=== PATIENT | female | born 1955 | race Caucasian/White ===

== ENCOUNTER 2021-12-26 10:26 | Outpatient (CLI) | payer MEDICARE ==
[2021-12-26 11:24] LABS: Hemoglobin 12.9 g/dL (12.0-15.5)
[2021-12-26 11:57] LABS: Anion Gap 14 mmol/L (10-20); BUN (Urea Nitrogen) 20 mg/dL (9.8-20.1); Calc. Creatinine Clearance 0 mL/min (70-130); Calcium 9.5 mg/dL (7.8-10.44); Carbon Dioxide 28 mmol/L (23-31); Chloride 102 mmol/L (98-107); Estimated GFR 75; Glucose 123 mg/dL (80-115); Potassium 4.9 mmol/L (3.5-5.1); Sodium 139 mmol/L (136-145)
== END 2021-12-26 10:27 | disposition home or self-care (01) ==
LOC: CSHLAB 10:26
PROVIDERS: ATTEND Otolaryngology Plastic Surgery within the Head & Neck
DX: Z01.818 Encounter for other preprocedural examination (principal); Z20.822 Contact with and (suspected) exposure to COVID-19; R06.1 Stridor; R49.0 Dysphonia; J01.00 Acute maxillary sinusitis, unspecified
CPT/HCPCS: 80048; 85014; 85018; 87811; 93005; 93010

== ENCOUNTER 2021-12-31 06:46 | Day surgery (SDC) | payer MEDICARE ==
[2021-12-27 16:50] VITALS: BMI 23.3
[~2021-12-31 06:46] MED LIST: Lidocaine 4% Topical Sol 50 ML BOT ONE; Oxymetazoline HCl 0.05% ( 15 ML ) ONE
[2021-12-31] MEDS ORDERED: Midazolam HCl 2 mg/2 ml Vial ONE ×2 (09:11→09:23)
[2021-12-31] MEDS ORDERED: EPINEPHrine 1 MG/ML AMP ONE (09:22)
[2021-12-31] MEDS ORDERED: Triamcinolone 40 MG/ML VIAL ONE (09:22)
[2021-12-31] MEDS ORDERED: Lidocaine 1% PF 5 ML VIAL ONE (09:23)
[2021-12-31] MEDS ORDERED: Fentanyl 100 MCG/2 ML VIAL ONE ×2 (09:23→10:25)
[2021-12-31] MEDS ORDERED: Dexamethasone 20 MG/5 ML VIAL ONE (09:23)
[2021-12-31] MEDS ORDERED: PROPOFOL 60 ML ONE (09:23)
[2021-12-31] MEDS ORDERED: Ondansetron PF 4 MG/2 ML Vial ONE (09:23)
[2021-12-31] MEDS ORDERED: hydrALAZINE 20 MG/ML VIAL ONE (10:51)
== END 2021-12-31 12:15 | disposition home or self-care (01) ==
LOC: CSHSDC 06:46
PROVIDERS: ATTEND Otolaryngology Plastic Surgery within the Head & Neck
PROC: 3E0F83Z Introduction of Anti-inflammatory into Respiratory Tract, Via Natural or Artificial Opening Endoscopic (ICD-10-PCS; principal; 2021-12-31)
PROC: 0C7S8ZZ Dilation of Larynx, Via Natural or Artificial Opening Endoscopic (ICD-10-PCS; 2021-12-31)
DX: J38.6 Stenosis of larynx (principal); J38.3 Other diseases of vocal cords; J01.00 Acute maxillary sinusitis, unspecified; R49.0 Dysphonia; J38.01 Paralysis of vocal cords and larynx, unilateral; J30.9 Allergic rhinitis, unspecified; G47.30 Sleep apnea, unspecified; E03.9 Hypothyroidism, unspecified; H26.9 Unspecified cataract; F32.A Depression, unspecified; F41.9 Anxiety disorder, unspecified; G43.909 Migraine, unspecified, not intractable, without status migrainosus; Z87.891 Personal history of nicotine dependence; Z20.822 Contact with and (suspected) exposure to COVID-19; Z88.8 Allergy status to other drugs, medicaments and biological substances; Z90.49 Acquired absence of other specified parts of digestive tract; Z98.890 Other specified postprocedural states
CPT/HCPCS: 31528; 31571; C1726 ×2; J0171; J0360; J1100; J2250; J2405; J2704; J3010; J3301

== ENCOUNTER 2022-04-30 11:31 | Emergency (ER) | payer MEDICARE ==
[~2022-04-30 11:31] MED LIST changes: +Iopamidol 300 61% 100 ML VIAL FS ONE; -Lidocaine 4% Topical Sol 50 ML BOT ONE; -Oxymetazoline HCl 0.05% ( 15 ML ) ONE
[2022-04-30 12:14] LABS: #Basophils 0.1 10x3/uL (0.0-0.2); #Eosinphils 0.3 10x3/uL (0.0-0.5); #Monocytes 0.8 10x3/uL (0.0-1.1); #Neutrophils 4.1 10x3/uL (1.5-8.4); %Basophils 0.9 % (0.0-2.0); %Eosinophils 3.6 % (0.0-6.0); %Lymphocytes 29.5 % (18.0-47.0); %Monocytes 10.7 % (0.0-10.0); %Neutrophils 54.9 % (40.0-75.0); Hemoglobin 14.2 g/dL (12.0-15.5); Mean Corpuscular HGB CONC 34.3 g/dL (32.0-36.0); Mean Corpuscular Volume 87.3 fl (81.6-98.3); Platelet Count 262 10x3/uL (130-400); RBC Distribution Width 12.6 % (11.5-14.5); Red Blood Cell (RBC) Count 4.74 10x6/uL (3.90-5.03); White Blood Cell (WBC) Count 7.5 10x3/uL (3.5-10.5)
[2022-04-30 12:22] LABS: ALT (SGPT) 19 U/L (8-55); AST (SGOT) 24 U/L (5-34); Albumin 4.4 g/dL (3.4-4.8); Alkaline Phosphatase 48 U/L (40-110); Anion Gap 12 mmol/L (10-20); BUN (Urea Nitrogen) 15 mg/dL (9.8-20.1); Bilirubin, Total 0.4 mg/dL (0.2-1.2); Calc. Creatinine Clearance 0 mL/min (70-130); Carbon Dioxide 28 mmol/L (23-31); Chloride 101 mmol/L (98-107); Estimated GFR 75; Globulin 2.9 g/dL (2.4-3.5); Glucose 93 mg/dL (80-115); Lipase 24 U/L (8-78); Potassium 3.8 mmol/L (3.5-5.1); Protein, Total 7.3 g/dL (5.8-8.1); Sodium 137 mmol/L (136-145)
[2022-04-30 12:26] LABS: Bilirubin Neg (Negative); Blood, Urine Negative (Negative); Clarity Clear (Clear); Glucose, Urine (Dipstick) Normal (Negative); Ketone, Urine Negative (Negative); Leukocyte Negative (Negative); Nitrite Negative (Negative); Protein, Urine (Dipstick) Negative (Neg-Trace); Urobilinogen Normal mg/dL (Less than 2)
[2022-04-30] MEDS ORDERED: Morphine 4 MG/ML VIAL ONE (13:42)
[2022-04-30] MEDS ORDERED: Ondansetron PF 4 MG/2 ML Vial ONE (13:42)
== END 2022-04-30 15:19 | disposition home or self-care (01) ==
LOC: CSHERS 11:31
DX: K52.9 Noninfective gastroenteritis and colitis, unspecified (principal); K62.89 Other specified diseases of anus and rectum; E03.9 Hypothyroidism, unspecified; Z79.899 Other long term (current) drug therapy
CPT/HCPCS: 36415; 74177; 80053; 81003; 83605; 83690; 85025; 96361; 96374; 96375; J2270; J2405; Q9967

== ENCOUNTER 2024-07-17 15:13 | Inpatient (IN) | payer MEDICARE ==
[2024-07-17] MEDS ORDERED: Morphine 4 MG/ML VIAL ONE ×2 (17:13→20:31)
[2024-07-17] MEDS ORDERED: Dexamethasone 10 MG/ML VIAL ONE (17:14)
[2024-07-17] MEDS ORDERED: Ondansetron PF 4 MG/2 ML Vial ONE (17:14)
[2024-07-17 17:22] LABS: #Basophils 0.12 10x3/uL (0.0-0.2); #Eosinophils 0.35 10x3/uL (0.0-0.5); #Neutrophils 5.89 10x3/uL (1.5-8.4); %Basophils 1.3 % (0.0-2.0); %Eosinophils 3.7 % (0.0-6.0); %Lymphocytes 22.8 % (18.0-47.0); %Monocytes 9.5 % (0.0-10.0); %Neutrophils 62.2 % (40.0-75.0); Hematocrit 38.5 % (34.9-44.5); Hemoglobin 12.5 g/dL (12.0-15.5); Mean Corpuscular HGB CONC 32.5 g/dL (32.0-36.0); Mean Corpuscular Hemoglobin 28.3 pg (27.0-33.0); Mean Corpuscular Volume 87.1 fL (81.6-98.3); Mean Platelet Volume 9.5 fL (7.4-10.4); Platelet Count 325 10x3/uL (150-450); RBC Distribution Width 13.4 % (11.5-14.5); Red Blood Cell (RBC) Count 4.42 10x6/uL (3.90-5.03); White Blood Cell (WBC) Count 9.47 10x3/uL (3.5-10.5)
[2024-07-17 17:39] LABS: ALT (SGPT) 13 U/L (Less than 34); AST (SGOT) 30 U/L (11-34); Albumin 4.1 g/dL (3.1-4.5); Alkaline Phosphatase 61 U/L (40-110); Anion Gap 15 mmol/L (10-20); BUN (Urea Nitrogen) 20 mg/dL (9.8-20.1); Bilirubin, Total 0.2 mg/dL (0.3-1.2); Calc. Creatinine Clearance 0 mL/min (70-130); Calcium 9.5 mg/dL (7.8-10.44); Carbon Dioxide 25 mmol/L (23-31); Chloride 105 mmol/L (98-107); Estimated GFR 59; Globulin 3.1 g/dL (2.4-3.5); Glucose 110 mg/dL (80-115); Potassium 3.7 mmol/L (3.5-5.1); Protein, Total 7.2 g/dL (5.8-8.1); Sodium 141 mmol/L (136-145)
[2024-07-17 17:43] LABS: Troponin I Less than 0.010 ng/mL (< 0.028)
[2024-07-17] MEDS ORDERED: Senokot S 8.6-50 MG TAB PO PRN (20:07)
[2024-07-17] MEDS ORDERED: Guaifenesin DM 100-10/5 ML UDCUP PO PRN (20:07)
[2024-07-17] MEDS ORDERED: Zolpidem Tartrate 5 MG TAB PO PRN (20:07)
[2024-07-17] MEDS ORDERED: Calcium Carbonate 500 MG ChewTAB PO PRN (20:07)
[2024-07-17] MEDS ORDERED: Acetaminophen/Codeine 30-300mg Tablet PO PRN (20:07)
[2024-07-17] MEDS ORDERED: Ondansetron PF 4 MG/2 ML Vial IVP PRN (20:07)
[2024-07-17] MEDS ORDERED: tiZANidine HCl 4 MG TAB PO PRN (20:08)
[2024-07-17 21:39] VITALS: BMI 23.2
[2024-07-17] MEDS: Ampicillin/Sulbactam 3 GM in Sodium Chloride 0.9% 100 ML IVPB SCH (22:02)
[2024-07-17] MEDS: Vancomycin HCl 125 MG Capsule PO SCH (22:02)
[2024-07-17] MEDS: Montelukast Sodium 10 mg Tablet PO SCH (22:06)
[2024-07-17] MEDS: Fenofibrate 48 MG TAB PO SCH (22:06)
[2024-07-17] MEDS: Famotidine 20 MG TAB PO SCH (22:06)
[2024-07-17] MEDS: Lactated Ringer's 1,000 ML IV SCH (22:06)
[2024-07-17 23:06] LABS: Influenza A by NAA Not Detected (NotDetected); Influenza B by NAA Not Detected (NotDetected); RSV by NAA Not Detected (NotDetected); SARS-CoV-2 NAA Rapid Test Not Detected (NotDetected)
[2024-07-18] MEDS: Acetaminophen 325 MG TAB PO PRN (02:24)
[2024-07-18] MEDS: Vancomycin HCl 125 MG Capsule PO SCH (02:25)
[2024-07-18] MEDS: Dexamethasone 4 mg/ml Vial SLOW IVP SCH (02:25)
[2024-07-18] MEDS: Ampicillin/Sulbactam 3 GM in Sodium Chloride 0.9% 100 ML IVPB SCH (02:27)
[2024-07-18] MEDS: Levothyroxine Sodium 112 MCG TAB PO SCH (06:42)
[2024-07-18] MEDS: predniSONE 20 MG TAB PO SCH (09:10)
[2024-07-18] MEDS: DULoxetine 30 MG CAP PO SCH (09:12)
[2024-07-18] MEDS: Morphine 2 MG/ML VIAL SLOW IVP PRN (11:59)
[2024-07-18] MEDS: Montelukast Sodium 10 mg Tablet PO SCH (21:04)
[2024-07-18] MEDS: Fenofibrate 48 MG TAB PO SCH (21:04)
[2024-07-18] MEDS: Famotidine 20 MG TAB PO SCH (21:04)
[2024-07-19 07:52] VITALS: BP 158/71; TEMP 98.4
== END 2024-07-19 14:15 | disposition home or self-care (01) | DRG 155 ==
LOC: CSHERS 15:13 → CSHTELE 19:57 → OBSVTOIN 07-18 07:59
PROVIDERS: ADMIT Student in an Organized Health Care Education/Training Program; ATTEND Family Medicine
DX: K11.21 Acute sialoadenitis (principal); F33.9 Major depressive disorder, recurrent, unspecified; J98.8 Other specified respiratory disorders; B96.89 Other specified bacterial agents as the cause of diseases classified elsewhere; F41.9 Anxiety disorder, unspecified; E03.9 Hypothyroidism, unspecified; G47.30 Sleep apnea, unspecified; E78.5 Hyperlipidemia, unspecified; Z88.8 Allergy status to other drugs, medicaments and biological substances; Z90.49 Acquired absence of other specified parts of digestive tract; Z90.79 Acquired absence of other genital organ(s); Z79.899 Other long term (current) drug therapy
CPT/HCPCS: 0241U; 36415; 70491; 71045; 80053; 83880; 84484; 85025; 87081; 87430; 93005; 96365; 96375; 96376; G0378; J0295; J1100; J2270; J2272; J2405; J7120; J7512; Q9967